=== PATIENT | male | born 1945 | race Caucasian/White ===

== ENCOUNTER 2017-07-22 09:37 | Emergency (ER) | payer MEDICARE ==
[~2017-07-22] VITALS: Ht 172.7 cm; Wt 95.0 kg
[2017-07-22] MEDS ORDERED: METO25TAB PO (09:56)
[2017-07-22] MEDS ORDERED: AMLODIPINE5 MG PO (09:56)
[2017-07-22] MEDS ORDERED: HYDROCHLOROT25 MG PO (09:57)
[2017-07-22] MEDS ORDERED: ZITHROMAX250 MG PO (10:10)
[2017-07-22] MEDS ORDERED: PREDNISONE50 MG PO (10:10)
[2017-07-22] MEDS ORDERED: AFRIN 12 HOUR0.05 % (10:10)
[2017-07-22] MEDS ORDERED: TESSALON PER100 MG PO (10:10)
[2017-07-22 10:47] VITALS: BP 127/73
== END 2017-07-22 10:44 | disposition home or self-care (01) ==
LOC: ED 09:37
DX: J40 Bronchitis, not specified as acute or chronic (principal); R09.81 Nasal congestion; R05 Cough; R09.89 Other specified symptoms and signs involving the circulatory and respiratory systems; F17.200 Nicotine dependence, unspecified, uncomplicated